=== PATIENT | female | born 2000 | race Caucasian/White ===

== ENCOUNTER 2025-06-03 18:29 | Emergency (ER) | payer OTHER ==
[2025-06-03 18:40] VITALS: BP 110/67; PULSE 72; RESP 20; TEMP 98.1; BMI 32.1
[2025-06-03 19:21] LABS: URINE APPEARANCE CLEAR; URINE BILIRUBIN NEGATIVE (NEGATIVE); URINE COLOR YELLOW; URINE GLUCOSE (UA) NEGATIVE (NEGATIVE); URINE KETONE NEGATIVE (NEGATIVE); URINE LEUK ESTERASE NEGATIVE (NEGATIVE); URINE NITRITE NEGATIVE (NEGATIVE); URINE PROTEIN NEGATIVE (NEGATIVE); URINE UROBILINOGEN 0.2 mg/dL (0.2-1.0)
== END 2025-06-03 21:42 | disposition home or self-care (01) ==
LOC: JER 18:29
DX: O26.891 Other specified pregnancy related conditions, first trimester (principal); R10.30 Lower abdominal pain, unspecified; Z3A.01 Less than 8 weeks gestation of pregnancy
CPT/HCPCS: 36415; 76817-TC; 81003; 84702; 87086; 99284-25